=== PATIENT | female | born 1945 | race Caucasian/White ===

== ENCOUNTER 2017-08-04 13:26 | Emergency (ER) | payer MEDICAID ==
[~2017-08-04] VITALS: Ht 167.6 cm; Wt 68.0 kg
[2017-08-04 13:32] VITALS: BP 149/72
--- NOTE | 2017-08-04 13:32 | NUR ---
Pt escoreted to bed 12 via walker
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
[2017-08-04] MEDS ORDERED: ONDANSETRON 4 MG ODT PO ONE (14:10)
[2017-08-04] MEDS ORDERED: KETOROLAC 60 MG/2 ML VIAL IM ONE (14:45)
[2017-08-04 15:29] VITALS: BP 149/72
--- NOTE | 2017-08-04 15:29 | NUR ---
Patient discharged with v/s stable. Written and verbal after care instructions given and explained. Patient alert, oriented and verbalized understanding of instructions. Ambulatory with steady gait. All questions addressed prior to discharge. ID band removed. Patient advised to follow up with PMD. Rx of motrin, cipro, and zofran given. Patient educated on indication of medication including possible reaction and side effects. Opportunity to ask questions provided and answered.
--- NOTE | 2017-08-06 18:04 | NUR ---
PATIENT URINE CULTURE RETURNED AND E COLI RESISTANT TO CIPRO. PATIENT WAS CONTACTED VIA PHONE AND SPOKE LITHUANIAN TO YVONNE JI. STATES SHE IS FEELING BETTER AND HAS AN APPOINTMENT WITH HER PRIMARY MD ON . NO FURTHER ACTION TAKEN.
== END 2017-08-04 15:29 | disposition home or self-care (01) ==
LOC: MED 13:26
DX: N39.0 Urinary tract infection, site not specified (principal); M79.622 Pain in left upper arm; E11.9 Type 2 diabetes mellitus without complications; I10 Essential (primary) hypertension
CPT/HCPCS: 87086; 96372; 99283; J1885; S0119; 81002; 87186